=== PATIENT | male | born 1965 | race Caucasian/White ===

== ENCOUNTER → 2018-05-19 07:48 | Outpatient (CLI) | payer BC, SELFPAY ==
[2018-05-19 07:59] LABS: Basophils % 0.8 % (0.1-2.0); Eosinophils # 0.1 K/mm3 (0.0-0.4); Eosinophils % 2.9 % (0.1-12.0); Hematocrit 40.3 % (42.0-52.0); Hemoglobin 13.1 g/dL (14.1-18.0); Lymphocytes # 1.1 K/mm3 (0.7-4.5); Lymphocytes % 26.1 K/mm3 (10-50); Mean Corpuscular HGB Conc 32.6 g/dL (31.8-35.4); Mean Corpuscular Hemoglobin 28.4 pg (27.0-31.2); Mean Corpuscular Volume 87.3 fl (80-94); Mean Platelet Volume 8.7 fl (7.4-10.4); Monocytes # 0.3 K/mm3 (0.1-1.0); Monocytes % 7.7 % (1.7-9.3); Neutrophils # 2.7 K/mm3 (1.8-7.8); Neutrophils % 62.6 % (37.0-80.0); Platelet Count 173 K/mm3 (142-424); Red Blood Count 4.62 M/mm3 (4.60-6.20); Red Cell Distribution Width 13.1 % (11.5-17.5); White Blood Count 4.3 K/mm3 (4.8-10.8)
[2018-05-19 08:30] LABS: Alanine Aminotransferase 47 U/L (12-78); Albumin Level 4.1 gm/dL (3.4-5.0); Albumin/Globulin Ratio 1.4 (1.1-1.8); Alkaline Phosphatase 53 U/L (46-116); Anion Gap 12.4 mEq/L (5-15); Aspartate Amino Transferase 19 U/L (15-37); Bilirubin,Total 0.2 mg/dL (0.2-1.0); Blood Urea Nitrogen 22 mg/dL (7-18); Calcium 9.1 mg/dL (8.5-10.1); Carbon Dioxide 29 mmol/L (21.0-32.0); Chloride 108 mmol/L (98-107); Chol/HDL Ratio 3.7 (1-3.5); Cholesterol 144 mg/dL (140-200); Creatinine,Serum 1.12 mg/dL (0.70-1.30); Estimated Glomerular Filt Rate 69 ml/min (>60); GFR (African American) 83 ML/MIN (>60); Globulin 2.9 gm/dl (1.3-3.2); Glucose 121 mg/dL (74-106); HDL Cholesterol 39 mg/dL (27-67); LDL Cholesterol 85 mg/dL (0-130); Potassium 4.4 mmoL/L (3.5-5.1); Sodium 145 mmol/L (136-145); Triglycerides 100 mg/dL (30-200); VLDL Cholesterol 20 mg/dL (0-40)
== END ==
PROVIDERS: Visit Provider Internal Medicine Adolescent Medicine
DX: Z00.00 Encounter for general adult medical examination without abnormal findings (principal); E78.5 Hyperlipidemia, unspecified; I25.10 Atherosclerotic heart disease of native coronary artery without angina pectoris
CPT/HCPCS: 36415; 80053; 80061; 85025

== ENCOUNTER → 2018-05-28 08:35 | Outpatient (CLI) | payer BC, SELFPAY ==
--- NOTE | 2018-05-28 08:45 | US_ITS ---
US abdomen complete HISTORY: ITS.REASON: SPIENOMEGALY ORDERING PHYSICIAN: Cornel Cantu MD PATIENT AGE: 53 years COMPARISON: None FINDINGS: PANCREAS:Unremarkable. No obvious mass or abnormal fluid collection. No ductal dilatation LIVER:No focal liver lesions demonstrated. Homogeneous echogenicity. No intrahepatic biliary ductal dilatation evident RIGHT KIDNEY:Unremarkable. Normal size and echogenicity. No hydronephrosis LEFT KIDNEY:Unremarkable. No hydronephrosis. Normal size and echogenicity. GALLBLADDER:No gallstones, gallbladder wall thickening, pericholecystic fluid, or biliary dilatation. AORTA:No evidence of aneurysmal dilatation. SPLEEN:There is mild splenomegaly at 14 cm. No obvious splenic lesions demonstrated ASCITES:None demonstrated. A palpable area in the left upper quadrant is imaged in shows a 3 x 1 cm area of isoechogenicity and may represent a lipoma. This may be confirmed with CT if clinically warranted IMPRESSION: 1. Borderline splenomegaly 2. Probable lipoma left upper quadrant
== END ==
PROVIDERS: Family Provider Internal Medicine Adolescent Medicine; PCP Internal Medicine Adolescent Medicine; Visit Provider Internal Medicine Adolescent Medicine
DX: R16.1 Splenomegaly, not elsewhere classified (principal)
CPT/HCPCS: 76700

== ENCOUNTER → 2018-06-16 14:09 | Outpatient (CLI) | payer BC, SELFPAY ==
--- NOTE | 2018-06-16 14:16 | CT_ITS ---
CT abdomen w con CLINICAL INDICATION: Splenomegaly ITS.REASON: enlarged spleen ORDERING PHYSICIAN: Mary Grace Stauffer MD PATIENT AGE: 53 years COMPARISON: None TECHNIQUE: Axial images obtained with sagittal and coronal reformats. All CT scans at the facility use one or more dose reduction, viz: automated exposure control, ma/kV adjustment per patient size (including targeted exams where dose is matched to indication, i.e. head), or iterative reconstruction technique. PROCEDURE: Oral Contrast: Redicat IV Contrast: 75 mL's of Isovue-370. FINDINGS: The lung bases are clear. Coronary artery calcifications and/or stents are noted The liver, gallbladder, adrenal glands, pancreas, and kidneys have an unremarkable appearance. There is mild splenomegaly at 14 cm. No splenic masses or perisplenic fluid collections are evident. No intestinal obstruction or free air. No enlarged lymph nodes. No acute bony anomalies. IMPRESSION: Mild splenomegaly otherwise negative CT abdomen with contrast
== END ==
PROVIDERS: Family Provider Internal Medicine Adolescent Medicine; PCP Internal Medicine Adolescent Medicine; Visit Provider Internal Medicine Medical Oncology
DX: R16.1 Splenomegaly, not elsewhere classified (principal)
CPT/HCPCS: 74160; Q9967

== ENCOUNTER → 2018-06-17 10:34 | Outpatient (CLI) | payer BC, SELFPAY ==
[2018-06-17 11:36] LABS: Basophils % 0.7 % (0.1-2.0); Eosinophils # 0.1 K/mm3 (0.0-0.4); Eosinophils % 2.7 % (0.1-12.0); Hematocrit 41.1 % (42.0-52.0); Hemoglobin 13.5 g/dL (14.1-18.0); Lymphocytes # 1.3 K/mm3 (0.7-4.5); Lymphocytes % 27.5 K/mm3 (10-50); Mean Corpuscular HGB Conc 32.8 g/dL (31.8-35.4); Mean Corpuscular Hemoglobin 28.7 pg (27.0-31.2); Mean Corpuscular Volume 87.6 fl (80-94); Mean Platelet Volume 7.8 fl (7.4-10.4); Monocytes # 0.3 K/mm3 (0.1-1.0); Monocytes % 7.4 % (1.7-9.3); Neutrophils # 2.8 K/mm3 (1.8-7.8); Neutrophils % 61.7 % (37.0-80.0); Platelet Count 185 K/mm3 (142-424); Red Blood Count 4.69 M/mm3 (4.60-6.20); Red Cell Distribution Width 13.3 % (11.5-17.5); White Blood Count 4.6 K/mm3 (4.8-10.8)
[2018-06-17 12:19] LABS: Thyroid Stimulating Hormone 3.49 uIU/ml (0.358-3.740)
[2018-06-21 05:20] LABS: Vitamin B12 1122 pg/mL (232-1245)
== END ==
PROVIDERS: PCP Internal Medicine Adolescent Medicine; Visit Provider Internal Medicine Medical Oncology
DX: R16.1 Splenomegaly, not elsewhere classified (principal)
CPT/HCPCS: 36415; 82607; 84443; 85025

== ENCOUNTER → 2018-10-11 08:37 | Outpatient (CLI) | payer BC, SELFPAY ==
--- NOTE | 2018-10-11 08:44 | US_ITS ---
US abdomen limited History:Follow-up splenomegaly Ordering Physician:Mary Grace Stauffer MD Patient Age: 53 years Comparison:05/28/2018 Findings: The spleen is slightly smaller measuring up to 12 to 13 cm in maximum longitudinal dimension previously measuring 14 cm. No perisplenic fluid collection or splenic mass evident. The left kidney has an unremarkable appearance. IMPRESSION: Borderline splenomegaly very slightly smaller compared to the previous exam
== END ==
PROVIDERS: PCP Internal Medicine Adolescent Medicine; Visit Provider Internal Medicine Medical Oncology
DX: R16.1 Splenomegaly, not elsewhere classified (principal)
CPT/HCPCS: 76705

== ENCOUNTER → 2019-03-21 08:39 | Outpatient (CLI) | payer BC, SELFPAY ==
[2019-03-21 09:12] LABS: Basophils # 0.1 K/mm3 (0-0.2); Basophils % 1.1 % (0.1-2.0); Eosinophils # 0.2 K/mm3 (0.0-0.4); Eosinophils % 3.8 % (0.1-12.0); Hematocrit 39.5 % (42.0-52.0); Hemoglobin 12.9 g/dL (14.1-18.0); Lymphocytes # 1.3 K/mm3 (0.7-4.5); Lymphocytes % 30.4 % (10-50); Mean Corpuscular HGB Conc 32.7 g/dL (31.8-35.4); Mean Corpuscular Hemoglobin 27.4 pg (27.0-31.2); Mean Corpuscular Volume 83.8 fl (80-94); Mean Platelet Volume 7.5 fl (7.4-10.4); Monocytes # 0.3 K/mm3 (0.1-1.0); Monocytes % 7.9 % (1.7-9.3); Neutrophils # 2.4 K/mm3 (1.8-7.8); Neutrophils % 56.8 % (37.0-80.0); Platelet Count 205 K/mm3 (142-424); Red Blood Count 4.72 M/mm3 (4.60-6.20); White Blood Count 4.3 K/mm3 (4.8-10.8)
[2019-03-21 11:18] LABS: Alanine Aminotransferase 64 U/L (12-78); Albumin Level 3.8 gm/dL (3.4-5.0); Albumin/Globulin Ratio 1.4 (1.1-1.8); Alkaline Phosphatase 48 U/L (46-116); Anion Gap 12.5 mEq/L (5-15); Aspartate Amino Transferase 34 U/L (15-37); Bilirubin,Total 0.3 mg/dL (0.2-1.0); Blood Urea Nitrogen 21 mg/dL (7-18); Calcium 9.3 mg/dL (8.5-10.1); Carbon Dioxide 28 mmol/L (21.0-32.0); Chloride 107 mmol/L (98-107); Chol/HDL Ratio 5.1 (1-3.5); Cholesterol 193 mg/dL (140-200); Creatinine,Serum 1.12 mg/dL (0.70-1.30); Estimated Glomerular Filt Rate 69 ml/min (>60); GFR (African American) 83 ML/MIN (>60); Globulin 2.8 gm/dl (1.3-3.2); Glucose 141 mg/dL (74-106); HDL Cholesterol 38 mg/dL (27-67); LDL Cholesterol 127 mg/dL (0-130); Potassium 4.5 mmoL/L (3.5-5.1); Sodium 143 mmol/L (136-145); Total Protein,Serum 6.6 gm/dL (6.4-8.2); Triglycerides 139 mg/dL (30-200); VLDL Cholesterol 28 mg/dL (0-40)
== END ==
PROVIDERS: Visit Provider Internal Medicine Adolescent Medicine
DX: I25.10 Atherosclerotic heart disease of native coronary artery without angina pectoris (principal); E78.5 Hyperlipidemia, unspecified
CPT/HCPCS: 36415; 80053; 80061; 85025

== ENCOUNTER → 2019-06-20 10:18 | Outpatient (CLI) | payer BC, SELFPAY ==
--- NOTE | 2019-06-20 10:20 | CA_ITS ---
APPROVED REPORT EXAM: Comprehensive 2D, Doppler, and color-flow Echocardiogram Mammography Technician: Vilma Marcano RVT Ht: 5 ft 10 in Wt: 241lbs BSA: 2.26 BP: 137/81 mmHg Indications: Shortness of Breath, CAD, Hyperlipidemia, Hypertension/HDD,Stents 2D Dimensions IVSd 1.40 cm M: 0.6-1.2 LVEF (Visual) 55.90 % PWd 1.40 cm M: 0.6 - 1.2 LVDd 3.20 cm M: 4.2 - 5.9 LVDs 2.30 cm M: 2.5 - 4.0 LVOT 2.90 cm (M/F) 1.5-2.5 M-Mode Dimensions LA Diam 4.50 cm (1.9-4.0) LVDd 4.90 cm (3.5-5.7) Ao Diam 2.30 cm (2.0-3.7) LVDs 3.20 cm (3.5-5.7) AV Cusp 2.40 cm (1.5-2.6) IVSd 1.20 cm (0.6-1.1) PWd 0.90 cm (0.6-1.1) EF (Teich) 63.70% FS 34.70% EDV (Teich) 113.00 mL ESV (Teich) 41.00 mL LV Diastology E/A Ratio 1.0 MED E' 7.60 (< 7 cm/sec) E'/MED E' Ratio 12.30 (>14) LAT E' 12.20 (<10 cm/sec) E/LAT E' Ratio 7.70 (>14) Aortic Valve AoV Peak Narciso. 131.00 (50-130 cm/s) AO Peak GR. 7.00 mmHg Mitral Valve MV E Max Narciso. 93.80 (40-130 cm/s) MV A Velocity 95.80 (40-130 cm/s) E/A Ratio 1.00 Pulmonary Valve PA Accel Time 130.00 (>120 msec) Tricuspid Valve TR P. Velocity 303.00 cm/s Left Ventricle Left atrium is mildly enlarged, left ventricle is normal size, mild concentric left ventricular hypertrophy, visually estimated ejection fraction 55% with no regional wall motion abnormality, grade 1 diastolic dysfunction seen without tissue Doppler evidence of raise left atrial pressure. Right Ventricle Right atrium and right ventricular normal size and contractility. Aortic Valve Aortic valve is minimally thickened and fibrosed. There is no aortic stenosis aortic insufficiency. Mitral Valve Mitral valve is grossly normal, there is no mitral stenosis, there is mild mitral regurgitation. Tricuspid Valve Tricuspid valve is grossly normal, there is mild tricuspid regurgitation. Pulmonic Valve Pulmonic valve is poorly visualized. Great Vessels Aortic root is normal size. Pericardium No significant pericardial effusion noted. Conclusion 1. Mildly enlarged left atrium, normal left ventricular size, mild concentric left ventricular hypertrophy, visually estimated ejection fraction 55% with no regional wall motion abnormality. Grade 1 diastolic dysfunction seen without tissue Doppler evidence of raise left atrial pressure. 2. Mild mitral and tricuspid regurgitation. 3. No significant pericardial effusion noted. Electronically signed by : Nicola Lezama, 06/24/2019 16:55:42
--- NOTE | 2019-06-20 10:20 | NM_ITS ---
APPROVED REPORT Exam: Nuclear Stress Test Indication: CAD, High Cholesterol, Family history, SOB Patient Location: Outpatient Stress Tech: Luna Rodriguez [place] Tech:Leilani Rincon, ARRT, RT (R)(N) Ht: 5 ft 11 in Wt: 240 lbs BSA: 2.28 m2 HR: 86 bpm BP: 151/90 mmHg BMI: 33.4 History: CAD, High Cholesterol, Family history, SOB Procedure: Patient exercised on Jose protocol 10 minutes and sec, resting heart rate 86 bpm, resting blood pressure 151/90 mmHg, with exercise maximum heart rate achived was 153 bpm which is Greater than 85 % of the maximum predicted heart rate and blood pressure was 168/78 mmHg. Test was stopped due to max effort. Patient denied any complaint of chest pain. Patient has Good exercise capacity, achieved 12.8 METs of workload on treadmill, the blood pressure response to exercise was Abnormal. Electrocardiogram Resting electrocardiogram showed sinus rhythm nonspecific ST-T changes, with exercise there is less than 1.[address] segment depression noted from the baseline EKG, occasional premature ventricular complexes were also present. The EKG portion of the exercise Myoview is nondiagnostic. Cardiac Stress and Resting SPECT Images: Cardiac Stress and Resting SPECT images were obtained using technetium 99m Myoview 32.2 mCi stress and 10.31 mCi at rest. Gated SPECT with analysis of segmental wall motion and calculation of the ejection fraction also done. Cardiac stress and resting SPECT images show decreased tracer activity in the inferior apical wall which improves on the resting images suggestive of reversible ischemia, computer derived ejection fraction is over 65% with no regional wall motion abnormality, right ventricle is normal size and contractility. Conclusion: 1. The EKG portion of the exercise Myoview is nondiagnostic due to baseline abnormal EKG. Patient has good exercise capacity achieved 12.8 mets of workload on treadmill, the blood pressure response to exercise was abnormal, there was no exercise-induced chest discomfort. 2. Scintigraphic evidence of small area reversible ischemia involving the inferior apical wall, possibility of the artifact cannot be excluded. Computer derived ejection fraction is over 65% with no regional wall motion abnormality, right ventricle is normal size and contractility. 3. Likely abnormal exercise Myoview study Electronically signed by : Nicola Lezama, 06/23/2019 17:02:30
--- NOTE | 2019-06-20 11:03 | HMH.ITSHM ---
Current Home Medications as stated by this patient Rocael Haas or videotape sales representative. []RENEXA XERELTO ATORVASTATIN FENOFIBRATE ASA PROTONIX VITAMINS
--- NOTE | 2019-06-20 12:30 | CA_ITS ---
APPROVED REPORT Ht: 5 ft 11 in Wt: 240 lbs BSA: 2.28 m2 Stress Test Details Test: Exercise stress testing was performed using a Jose protocol. HR Resting HR: 86 bpm Max Heart Rate (APMHR): 167 bpm Max HR Achieved: 170 bpm Target HR (85% APMHR): 141 bpm % of APMHR: 101 Recovery HR: 101 bpm HR response to stress: Normal HR response to stress BP Resting BP: 151.0/90.0 mmHg Max BP: 168.0/78.0 mmHg Recovery BP: 158.0/92.0 mmHg BP response to stress: Normal blood pressure response to stress. ECG Resting ECG: SINUS RHYTHM Stress ECG: OCC PVC Arrhythmia: , APC's, VPC's Recovery ECG: SINUS RHYTHM, nonspecific ST-T changes Clinical Reason for Termination: Completed protocol Stress Symptoms: Leg Fatigue Exercise duration: 10 min Exercise capacity: 12.8 METs Angina Score: None Stress ECG Conclusion OCCASIONAL PVC; less THAN 1.5mm ST DEPRESSION. The EKG portion of the myocardial perfusion imaging is nondiagnostic due to baseline abnormal EKG. Electronically signed by : Nicola Lezama, 06/20/2019 21:22:05
== END ==
PROVIDERS: PCP Internal Medicine Adolescent Medicine; Visit Provider Internal Medicine Cardiovascular Disease
DX: I25.118 Atherosclerotic heart disease of native coronary artery with other forms of angina pectoris (principal); R06.09 Other forms of dyspnea; E66.9 Obesity, unspecified; E78.49 Other hyperlipidemia; I10 Essential (primary) hypertension; Z82.49 Family history of ischemic heart disease and other diseases of the circulatory system
CPT/HCPCS: 78452; 93017; 93306; A9502

== ENCOUNTER → 2019-07-12 11:28 | Outpatient (CLI) | payer BC, SELFPAY ==
[2019-07-12 12:10] LABS: Basophils # 0.1 K/mm3 (0-0.2); Basophils % 1.2 % (0.1-2.0); Eosinophils # 0.2 K/mm3 (0.0-0.4); Hematocrit 42.4 % (42.0-52.0); Hemoglobin 13.2 g/dL (14.1-18.0); Lymphocytes # 1.4 K/mm3 (0.7-4.5); Lymphocytes % 32.5 % (10-50); Mean Corpuscular HGB Conc 31.2 g/dL (31.8-35.4); Mean Corpuscular Hemoglobin 28.1 pg (27.0-31.2); Mean Corpuscular Volume 90.3 fl (80-94); Mean Platelet Volume 8.3 fl (7.4-10.4); Monocytes # 0.4 K/mm3 (0.1-1.0); Monocytes % 8.3 % (1.7-9.3); Neutrophils # 2.3 K/mm3 (1.8-7.8); Platelet Count 217 K/mm3 (142-424); White Blood Count 4.3 K/mm3 (4.8-10.8)
[2019-07-12 13:53] LABS: Alanine Aminotransferase 49 U/L (12-78); Albumin Level 4.2 gm/dL (3.4-5.0); Alkaline Phosphatase 47 U/L (46-116); Anion Gap 10.9 mEq/L (5-15); Aspartate Amino Transferase 22 U/L (15-37); Bilirubin,Direct 0.1 mg/dL (0.0-0.2); Bilirubin,Indirect 0.3 mg/dL (0.0-0.9); Bilirubin,Total 0.4 mg/dL (0.2-1.0); Blood Urea Nitrogen 22 mg/dL (7-18); Calcium 9.4 mg/dL (8.5-10.1); Carbon Dioxide 31 mmol/L (21.0-32.0); Chloride 104 mmol/L (98-107); Chol/HDL Ratio 4.9 (1-3.5); Cholesterol 214 mg/dL (140-200); Creatinine,Serum 1.12 mg/dL (0.70-1.30); Estimated Glomerular Filt Rate 69 ml/min (>60); GFR (African American) 83 ML/MIN (>60); Glucose 182 mg/dL (74-106); HDL Cholesterol 44 mg/dL (27-67); LDL Cholesterol 137 mg/dL (0-130); Magnesium 1.7 mg/dL (1.4-2.2); Potassium 4.9 mmoL/L (3.5-5.1); Sodium 141 mmol/L (136-145); Total Protein,Serum 7.1 gm/dL (6.4-8.2); Triglycerides 164 mg/dL (30-200); VLDL Cholesterol 33 mg/dL (0-40)
== END ==
PROVIDERS: Visit Provider Physician Assistant
DX: I11.9 Hypertensive heart disease without heart failure (principal); I25.118 Atherosclerotic heart disease of native coronary artery with other forms of angina pectoris; Z51.81 Encounter for therapeutic drug level monitoring; Z79.899 Other long term (current) drug therapy
CPT/HCPCS: 36415; 80048; 80061; 80076; 83735; 85025

== ENCOUNTER → 2020-01-24 10:28 | Outpatient (CLI) | payer BC, SELFPAY ==
[2020-01-24 11:39] LABS: Chloride 100 mmol/L (98-107)
[2020-01-24 11:40] LABS: Potassium 4.5 mmoL/L (3.5-5.1); Sodium 137 mmol/L (136-145)
[2020-01-24 11:42] LABS: Alanine Aminotransferase 43 U/L (12-78); Albumin Level 4.2 g/dl (3.5-5.0); Albumin/Globulin Ratio 1.7 (1.1-1.8); Alkaline Phosphatase 63 U/L (38-126); Anion Gap 13.5 mEq/L (5-15); Aspartate Amino Transferase 35 U/L (17-59); Bilirubin,Total 0.5 mg/dl (0.2-1.3); Blood Urea Nitrogen 25 mg/dl (9-20); Calcium 9.7 mg/dl (8.4-10.2); Carbon Dioxide 28 mmol/L (22.0-30.0); Cholesterol 165 mg/dl (140-200); Estimated Glomerular Filt Rate 101 ml/min (>60); GFR (African American) 122 ML/MIN (>60); Globulin 2.5 g/dL (1.3-3.2); Glucose 335 mg/dl (74-100); Total Protein,Serum 6.7 g/dl (6.3-8.2); Triglycerides 364 mg/dl (30-150); VLDL Cholesterol 73 mg/dL (0-40)
[2020-01-24 11:43] LABS: HDL Cholesterol 33 mg/dl (40-60)
[2020-01-24 11:54] LABS: Direct LDL Cholesterol 84.98 mg/dL (100-129)
[2020-01-24 12:33] LABS: Eosinophils # 0.1 K/mm3 (0.0-0.4); Eosinophils % 3.3 % (0.1-12.0); Hematocrit 40.1 % (42.0-52.0); Hemoglobin 13.4 g/dL (14.1-18.0); Lymphocytes # 1.1 K/mm3 (0.7-4.5); Lymphocytes % 30.4 % (10-50); Mean Corpuscular HGB Conc 33.3 g/dL (31.8-35.4); Mean Corpuscular Hemoglobin 28.5 pg (27.0-31.2); Mean Corpuscular Volume 85.5 fl (80-94); Mean Platelet Volume 8.9 fl (7.4-10.4); Monocytes # 0.3 K/mm3 (0.1-1.0); Monocytes % 8.2 % (1.7-9.3); Neutrophils % 57.1 % (37.0-80.0); Platelet Count 193 K/mm3 (142-424); Red Blood Count 4.69 M/mm3 (4.60-6.20); Red Cell Distribution Width 13.6 % (11.5-17.5); White Blood Count 3.6 K/mm3 (4.8-10.8)
[2020-01-24 16:21] LABS: Hemoglobin A1C 10.2 % (4.0-6.0)
== END ==
PROVIDERS: Urology; Visit Provider Internal Medicine Adolescent Medicine
DX: I51.89 Other ill-defined heart diseases (principal)
CPT/HCPCS: 36415; 80053; 80061; 82248; 83036; 85025

== ENCOUNTER → 2020-05-08 08:14 | Outpatient (CLI) | payer BC, SELFPAY ==
[2020-05-08 09:27] LABS: Basophils # 0.1 K/mm3 (0-0.2); Basophils % 0.9 % (0.1-2.0); Eosinophils # 0.2 K/mm3 (0.0-0.4); Eosinophils % 3.6 % (0.1-12.0); Hematocrit 44.2 % (42.0-52.0); Hemoglobin 15.1 g/dL (14.1-18.0); Lymphocytes # 1.3 K/mm3 (0.7-4.5); Lymphocytes % 20.9 % (10-50); Mean Corpuscular HGB Conc 34.2 g/dL (31.8-35.4); Mean Corpuscular Hemoglobin 29.3 pg (27.0-31.2); Mean Corpuscular Volume 85.7 fl (80-94); Mean Platelet Volume 8.1 fl (7.4-10.4); Monocytes # 0.4 K/mm3 (0.1-1.0); Monocytes % 5.6 % (1.7-9.3); Neutrophils # 4.3 K/mm3 (1.8-7.8); Platelet Count 169 K/mm3 (142-424); Red Blood Count 5.16 M/mm3 (4.60-6.20); White Blood Count 6.2 K/mm3 (4.8-10.8)
[2020-05-08 09:51] LABS: Chloride 101 mmol/L (98-107); Potassium 4.4 mmoL/L (3.5-5.1); Sodium 141 mmol/L (136-145)
[2020-05-08 09:54] LABS: Alanine Aminotransferase 38 U/L (12-78); Albumin Level 4.5 g/dl (3.5-5.0); Albumin/Globulin Ratio 1.9 (1.1-1.8); Alkaline Phosphatase 47 U/L (38-126); Anion Gap 15.4 mEq/L (5-15); Aspartate Amino Transferase 33 U/L (17-59); Bilirubin,Total 0.4 mg/dl (0.2-1.3); Blood Urea Nitrogen 20 mg/dl (9-20); Calcium 10.1 mg/dl (8.4-10.2); Carbon Dioxide 29 mmol/L (22.0-30.0); Cholesterol 149 mg/dl (140-200); Estimated Glomerular Filt Rate 101 ml/min (>60); GFR (African American) 122 ML/MIN (>60); Globulin 2.4 g/dL (1.3-3.2); Glucose 113 mg/dl (74-100); Total Protein,Serum 6.9 g/dl (6.3-8.2); Triglycerides 144 mg/dl (30-150); VLDL Cholesterol 29 mg/dL (0-40)
[2020-05-08 09:55] LABS: Chol/HDL Ratio 4.4 (1-3.5); HDL Cholesterol 34 mg/dl (40-60)
[2020-05-08 10:05] LABS: Direct LDL Cholesterol 94.11 mg/dL (100-129)
[2020-05-08 10:34] LABS: Hemoglobin A1C 6.3 % (4.0-6.0)
== END ==
PROVIDERS: Visit Provider Internal Medicine Adolescent Medicine
DX: I25.10 Atherosclerotic heart disease of native coronary artery without angina pectoris (principal); E78.5 Hyperlipidemia, unspecified; E11.9 Type 2 diabetes mellitus without complications; Z79.84 Long term (current) use of oral hypoglycemic drugs
CPT/HCPCS: 36415; 80053; 80061; 83036; 85025

== ENCOUNTER → 2020-08-16 07:48 | Outpatient (CLI) | payer BC, SELFPAY ==
[2020-08-16 08:44] LABS: Basophils # 0.1 K/mm3 (0-0.2); Basophils % 0.7 % (0.1-2.0); Eosinophils # 0.3 K/mm3 (0.0-0.4); Eosinophils % 3.8 % (0.1-12.0); Hematocrit 47.6 % (42.0-52.0); Hemoglobin 14.9 g/dL (14.1-18.0); Lymphocytes # 1.5 K/mm3 (0.7-4.5); Lymphocytes % 20.2 % (10-50); Mean Corpuscular HGB Conc 31.2 g/dL (31.8-35.4); Mean Corpuscular Hemoglobin 27.4 pg (27.0-31.2); Mean Corpuscular Volume 87.9 fl (80-94); Mean Platelet Volume 7.5 fl (7.4-10.4); Monocytes # 0.5 K/mm3 (0.1-1.0); Monocytes % 6.4 % (1.7-9.3); Neutrophils % 68.9 % (37.0-80.0); Platelet Count 197 K/mm3 (142-424); Red Blood Count 5.41 M/mm3 (4.60-6.20); Red Cell Distribution Width 14.4 % (11.5-17.5); White Blood Count 7.3 K/mm3 (4.8-10.8)
[2020-08-16 09:08] LABS: Chloride 101 mmol/L (98-107); Potassium 4.5 mmoL/L (3.5-5.1); Sodium 138 mmol/L (136-145)
[2020-08-16 09:11] LABS: Alanine Aminotransferase 36 U/L (12-78); Albumin Level 4.6 g/dl (3.5-5.0); Albumin/Globulin Ratio 1.8 (1.1-1.8); Alkaline Phosphatase 48 U/L (38-126); Anion Gap 14.5 mEq/L (5-15); Aspartate Amino Transferase 29 U/L (17-59); Bilirubin,Total 0.5 mg/dl (0.2-1.3); Blood Urea Nitrogen 23 mg/dl (9-20); Calcium 9.8 mg/dl (8.4-10.2); Carbon Dioxide 27 mmol/L (22.0-30.0); Chol/HDL Ratio 4.7 (1-3.5); Cholesterol 183 mg/dl (140-200); Estimated Glomerular Filt Rate 101 ml/min (>60); GFR (African American) 122 ML/MIN (>60); Globulin 2.6 g/dL (1.3-3.2); Glucose 109 mg/dl (74-100); HDL Cholesterol 39 mg/dl (40-60); Total Protein,Serum 7.2 g/dl (6.3-8.2); Triglycerides 186 mg/dl (30-150); VLDL Cholesterol 37 mg/dL (0-40)
[2020-08-16 09:22] LABS: Direct LDL Cholesterol 113.13 mg/dL (100-129)
[2020-08-16 09:30] LABS: Hemoglobin A1C 6.3 % (4.0-6.0)
== END ==
PROVIDERS: Visit Provider Internal Medicine Adolescent Medicine
DX: I25.10 Atherosclerotic heart disease of native coronary artery without angina pectoris (principal); E11.9 Type 2 diabetes mellitus without complications; Z79.84 Long term (current) use of oral hypoglycemic drugs
CPT/HCPCS: 36415; 80053; 80061; 83036; 85025

== ENCOUNTER → 2021-05-07 10:09 | Outpatient (CLI) | payer BC, SELFPAY ==
[2021-05-07 10:35] LABS: Basophils # 0.1 K/mm3 (0-0.2); Basophils % 1.1 % (0.1-2.0); Eosinophils # 0.2 K/mm3 (0.0-0.4); Eosinophils % 3.5 % (0.1-12.0); Hematocrit 44.7 % (42.0-52.0); Hemoglobin 14.8 g/dL (14.1-18.0); Lymphocytes # 1.3 K/mm3 (0.7-4.5); Lymphocytes % 19.5 % (10-50); Mean Corpuscular HGB Conc 33.1 g/dL (31.8-35.4); Mean Corpuscular Hemoglobin 28.3 pg (27.0-31.2); Mean Corpuscular Volume 85.4 fl (80-94); Mean Platelet Volume 7.9 fl (7.4-10.4); Monocytes # 0.5 K/mm3 (0.1-1.0); Monocytes % 6.8 % (1.7-9.3); Neutrophils # 4.6 K/mm3 (1.8-7.8); Neutrophils % 69.2 % (37.0-80.0); Platelet Count 172 K/mm3 (142-424); Red Blood Count 5.24 M/mm3 (4.60-6.20); Red Cell Distribution Width 14.5 % (11.5-17.5); White Blood Count 6.6 K/mm3 (4.8-10.8)
[2021-05-07 10:48] LABS: Hemoglobin A1C 6.4 % (4.0-6.0)
[2021-05-07 11:27] LABS: Alanine Aminotransferase 47 U/L (12-78); Albumin Level 4.4 g/dl (3.5-5.0); Albumin/Globulin Ratio 1.9 (1.1-1.8); Alkaline Phosphatase 54 U/L (38-126); Anion Gap 15.6 mEq/L (5-15); Aspartate Amino Transferase 40 U/L (17-59); Bilirubin,Total 0.6 mg/dl (0.2-1.3); Blood Urea Nitrogen 10 mg/dl (9-20); Calcium 9.2 mg/dl (8.4-10.2); Carbon Dioxide 29 mmol/L (22.0-30.0); Chloride 102 mmol/L (98-107); Chol/HDL Ratio 3.9 (1-3.5); Cholesterol 147 mg/dl (140-200); Estimated Glomerular Filt Rate 117 ml/min (>60); GFR (African American) 142 ML/MIN (>60); Globulin 2.3 g/dL (1.3-3.2); Glucose 113 mg/dl (74-100); HDL Cholesterol 38 mg/dl (40-60); Potassium 4.6 mmoL/L (3.5-5.1); Sodium 142 mmol/L (136-145); Total Protein,Serum 6.7 g/dl (6.3-8.2); Triglycerides 166 mg/dl (30-150); VLDL Cholesterol 33 mg/dL (0-40)
[2021-05-07 11:39] LABS: Direct LDL Cholesterol 84.79 mg/dL (100-129)
== END ==
PROVIDERS: Visit Provider Internal Medicine Adolescent Medicine
DX: I25.10 Atherosclerotic heart disease of native coronary artery without angina pectoris (principal); I51.89 Other ill-defined heart diseases
CPT/HCPCS: 36415; 80053; 80061; 83036; 85025

== ENCOUNTER → 2021-08-09 11:24 | Outpatient (CLI) | payer BC, SELFPAY ==
--- NOTE | 2021-08-09 11:24 | NM_ITS ---
APPROVED REPORT Exam: Nuclear Stress Test Indication: CAD, DM, High cholesterol, Family history Patient Location: Outpatient Stress Tech: Geraldine Echevarria [place] Tech:Leilani Rincon, ARRT, RT (R)(N) Ht: 5 ft 11 in Wt: 222 lbs HR: 73 bpm BP: 146/87 mmHg BSA: 2.20 m2 BMI: 30.9 History: CAD, DM, High cholesterol, Family history Procedure: Patient exercised on Jose protocol 9:00 minutes and sec, resting heart rate 73 bpm, resting blood pressure 146/87 mmHg, with exercise maximum heart rate achived was 154 bpm which is 105 % of the maximum predicted heart rate and blood pressure was 187/96 mmHg. Test was stopped due to patient request. Patient denied any complaint of chest pain. Patient has good exercise capacity, achieved 10.1 METs of workload on treadmill, the blood pressure response to exercise was Adequate. Electrocardiogram Resting electrocardiogram shows sinus rhythm nonspecific ST-T changes, with exercise there is less than 1.[address] segment depression noted from the baseline EKG, the EKG portion of the exercise Myoview was nondiagnostic due to baseline abnormal EKG. Cardiac Stress and Resting SPECT Images: Cardiac Stress and Resting SPECT images were obtained using technetium 99m Myoview 30.7 mCi stress and 10.88 mCi at rest. Gated SPECT for analysis of segmental wall motion and calculation of the ejection fraction also done. Prone images were also obtained. Cardiac stress and resting SPECT images show uniform myocardial activity without segmental perfusion abnormality, compared right ejection fraction is 43% with no regional wall motion abnormality, right ventricle is normal size and contractility. Conclusion: 1. The EKG portion of the exercise Myoview is nondiagnostic due to baseline abnormal EKG, patient has good exercise capacity achieved 10.1 METs of workload on treadmill, the blood pressure response to exercise was adequate, there was no exercise-induced induced chest discomfort. 2. No scintigraphic evidence of reversible ischemia seen, compared right ejection fraction is 43% with no regional wall motion abnormality, right ventricle is normal size and contractility. 3. Abnormal exercise Myoview study due to low ejection fraction noted by gated SPECT otherwise normal perfusion. Electronically signed by : Nicola Lezama MD 08/13/2021 06:59:33
--- NOTE | 2021-08-09 13:32 | CA_ITS ---
APPROVED REPORT EXAM: Comprehensive 2D, Doppler, and color-flow Echocardiogram Senior Software Test Engineer: Vilma Marcano RVT Ht: 5 ft 10 in Wt: 224lbs BSA: 2.19 BP: 131/80 mmHg Indications: CAD,HTN,HLD,SOA 2D Dimensions LVOT 2.40 cm (M/F) 1.5-2.5 LA Volume 36.10 mL LA Volume Index 16.48 mL/m2 (M/F) 16-34 M-Mode Dimensions RVDd 2.70 cm (0.9-2.6) LA Diam 4.12 cm (1.9-4.0) LVDd 4.75 cm (3.5-5.7) Ao Diam 3.62 cm (2.0-3.7) LVDs 3.34 cm (3.5-5.7) IVSd 0.80 cm (0.6-1.1) PWd 0.53 cm (0.6-1.1) EF (Teich) 56.70% FS 29.70% EDV (Teich) 104.90 mL TAPSE 2.30 (<1.7) ESV (Teich) 45.40 mL LV Diastology E Decel Time 143.00 (160-240 msec) E/A Ratio 1.1 MED E' 6.20 (< 7 cm/sec) E'/MED E' Ratio 12.81 (>14) LAT E' 7.30 (<10 cm/sec) E/LAT E' Ratio 10.88 (>14) Mitral Valve MV E Max Narciso. 79.00 (40-130 cm/s) MV A Velocity 71.00 (40-130 cm/s) E/A Ratio 1.12 MV Decel. Time 143.00 (160-240 ms) MV PHT 42.00 ms Pulmonary Valve PV Peak Velocity 73.00 (50-150 cm/s) Left Ventricle Left atrium is mildly enlarged, left ventricle is normal size, mild concentric left ventricular hypertrophy, visually estimated ejection fraction 55% with no regional wall motion abnormality, grade 1 diastolic dysfunction seen without tissue Doppler evidence of raise left atrial pressure. Right Ventricle Right atrium and right ventricle are normal size and contractility. Aortic Valve Aortic valve is minimally thickened and fibrosed, there is no aortic stenosis or aortic insufficiency. Mitral Valve Mitral valve grossly normal, there is trace mitral regurgitation. Tricuspid Valve Tricuspid valve grossly normal, there is trace tricuspid regurgitation, tricuspid regurgitation jet velocity is inadequate for calculation of the right ventricular systolic pressure. Pulmonic Valve Pulmonic valve is poorly visualized. Great Vessels Aortic root is normal size. Inferior vena cava is normal size with normal inspiratory collapse. Pericardium No significant pericardial effusion noted. Conclusion 1. Mildly enlarged left atrium, normal left ventricular size, mild concentric left ventricular hypertrophy, visually estimated ejection fraction 55% with no regional wall motion abnormality, grade 1 diastolic dysfunction seen without tissue Doppler evidence of raise left atrial pressure. 2. Trace mitral and tricuspid regurgitation. 3. No significant pericardial effusion noted. 4. Inferior vena cava is normal size with normal inspiratory collapse. Electronically signed by : Nicola Lezama MD 08/13/2021 05:58:54
--- NOTE | 2021-08-09 14:07 | HMH.ITSHM ---
Current Home Medications as stated by this patient Rocael Haas or account retention representative. []RIVAROXABAN [PANTOPRAZOLE MULTIVITAMIN METFORMIN EMPAGLIFLOZIN COQ10 ATORVASTATIN ASA
--- NOTE | 2021-08-09 14:24 | CA_ITS ---
APPROVED REPORT Exam: Exercise Treadmill Technologist: Geraldine Echevarria, Ht: 5 ft 10 in Wt: 224 lbs BSA: 2.19 m2 HR: 73 bpm BP: 146/87 mmHg Medical History Medications: Aspirin,,,,, Metformin,,,,, Pantoprazole,,,,, Atorvastatin,,,,, XaRELTO,,,,, Co Q10,,,,, Multivitamin,,,,, EMpagliflozin,,,,, Stress Test Details Test: Jose HR Resting HR: 92 bpm Max Heart Rate (APMHR): 165.415533 bpm Max HR Achieved: 154 bpm Target HR (85% APMHR): 140.631202 bpm % of APMHR: 93.33 Recovery HR: 90 bpm BP Resting BP: 161/96 mmHg Max BP: 190/100 mmHg Recovery BP: 156.0/93.0 mmHg ECG Resting ECG: NSR, Inf. Lat STT Segment Abnormalities Clinical Exercise duration: 09:01 min Highest Stage Achieved: Exercise capacity: 10.1 METs Stress ECG Conclusion Exercised 9:00 minutes Max HR: 154 % of PM: 105 Max BP: 187/96 MET's: 10.1 Stopped due to: Pt. request Symptoms: None Arrhythmias/Ectopy: Occ. PVC's ST-T Changes: <1.5mm ST Segment changes Conclusion: Abnormal, Non-Diagnostic stress due to baseline EKG changes. Test Summary REST . . . . . . . Sitting REST . . . . . . . Standing REST 09:53 0.0 1.2 92 . 161/ 96 . . Stage 1 01:00 10.0 1.7 102 . . . . Stage 1 02:00 10.0 1.7 109 . . . . Stage 1 03:00 10.0 1.7 107 . 158/ 90 . . Stage 2 01:00 12.0 2.5 116 . . . . Stage 2 02:00 12.0 2.5 124 . . . . Stage 2 03:00 12.0 2.5 127 . 190/100 . . Stage 3 01:00 14.0 3.4 140 . . . . Stage 3 02:00 14.0 3.4 149 . . . . Stage 3 03:00 14.0 3.4 154 . . . . Stage 4 00:01 16.0 4.2 154 . . . Stop exercise at 09:01 RECOVERY 01:00 0.0 0.0 138 . . . . RECOVERY 02:00 0.0 0.0 112 . . . . RECOVERY 03:00 0.0 0.0 101 . 187/ 96 . . RECOVERY 04:00 0.0 0.0 97 . 187/ 96 . . RECOVERY 05:00 0.0 0.0 95 . 187/ 96 . . RECOVERY 06:00 0.0 0.0 90 . 156/ 93 . . RECOVERY 07:00 0.0 0.0 0 . 156/ 93 . . RECOVERY 07:35 0.0 0.0 0 . 156/ 93 . . Electronically signed by : Nicola Lezama MD 08/13/2021 06:46:51
== END ==
PROVIDERS: PCP Internal Medicine Adolescent Medicine; Visit Provider Nurse Practitioner Family
DX: I25.10 Atherosclerotic heart disease of native coronary artery without angina pectoris (principal); I10 Essential (primary) hypertension; I73.9 Peripheral vascular disease, unspecified; E78.49 Other hyperlipidemia; M47.814 Spondylosis without myelopathy or radiculopathy, thoracic region; E66.9 Obesity, unspecified; Z68.32 Body mass index [BMI] 32.0-32.9, adult; Z02.89 Encounter for other administrative examinations
CPT/HCPCS: 78452; 93017; 93306; A9502

== ENCOUNTER → 2023-07-21 07:23 | Outpatient (CLI) | payer BC, SELFPAY ==
--- OUTSIDE RECORDS SUMMARY | 2023-07-21 07:25 | XMS_ITS | Patient Health Record ---
Author Name Unknown Organization [facility] Address [address] [facility] [address] [place] [address] Care Team Providers Care Greens Cutter Name Role Phone Cornel Cantu Primary Care Provider [phone] ALLERGIES No Known Allergies RESULTS Component Value Reference Range Notes Estimated Glomerular Filtrat ion Rate Reviewed date:09/16/2022 03:11:59 PM Interpretation: Performing Lab: Notes/Report: CLIA: [id number] Kamlesh Frances MD, [facility] [address] , [address], [place] [address] Test performed by [facility] Estimated GFR (Black) 108 >59 mL/min/1.73m2 Estimated GFR (Other) 93 >59 mL/min/1.73m2 GFR Categories in Chronic Kidney Disease (CKD) GFR Category GFR (mL/min/1.73 sq. meters) Interpretation G1 90 or greater Normal or high* G2 60-89 Mild decrease* G3a 45-59 Mild to moderate decrease G3b 30-44 Moderate to severe decrease G4 15-29 Severe decrease G5 14 or less Kidney failure *In the absence of kidney damage, neither GFR category G1 or G2 fulfill the criteria for CKD (Kidney Int Suppl 2013; 3.1-150) The CKD-EPI calculation is intended for use in patients 18 years of age and older. Decreased calculation accuracy may be seen in patients taking medications that affect renal excretion, or in those patients with extremes in muscle mass or diet. Lipid Panel Reviewed date:09/16/2022 03:11:59 PM Interpretation: Performing Lab: Notes/Report: Test performed by [facility] [address] , [address], [place] [address] Kamlesh Frances MD, Lead [facility] CLIA: [id number] Cholesterol 160
--- NOTE | 2023-07-21 07:26 | NM_ITS ---
APPROVED REPORT Exam: Nuclear Stress Test Indication: CAD, 3 STENTS, DM, HYPERLIPIDEMIA, , FM HX, ANGINA Patient Location: Outpatient Stress Tech: Bronwyn Dunaway [place] Tech:Elisa Arriola HILARIARober RT (R)(N)(M) Ht: 5 ft 11 in Wt: 225 lbs HR: 76 bpm BP: 148/87 mmHg BSA: 2.22 m2 Rhythm: NSR TID: 1.05 BMI: 31.3 History: CAD, 3 STENTS, DM, HYPERLIPIDEMIA, , FM HX, ANGINA Procedure: Patient exercised on Jose protocol 9:22 minutes and sec, resting heart rate 76 bpm, resting blood pressure 148/87 mmHg, with exercise maximum heart rate achived was 158 bpm which is 97 % of the maximum predicted heart rate and blood pressure was 200/88 mmHg. Test was stopped due to FATIGUE. Patient has Average exercise capacity, achieved 10.1 METs of workload on treadmill, the blood pressure response to exercise was Exaggerated. PT C/O CHEST PRESSURE Cardiac Stress and Resting SPECT Images: Cardiac Stress and Resting SPECT images were obtained using technetium 99m Myoview 31.4 mCi stress and 10.79 mCi at rest. Raw images demonstrate significant diaphragmatic overlap with the inferior border of the LV wall. Resting and stress imaging in supine and prone positions demonstrate a medium, moderate, partially reversible perfusion defect in the basal to mid inferior and lateral LV gann. Gated imaging demonstrates mild reduction in global and regional LV systolic function. LVEF is calculated at 46%. Conclusion: Diaphragmatic attenuation is present Medium, moderate, partially reversible perfusion defect in the basal to mid inferior and lateral LV gann. Findings are suggestive of possible partially reversible ischemia. Gated imaging demonstrates mild reduction in global and regional LV systolic function. LVEF is calculated at 46%. Of note, the patient had a hypertensive exaggerated BP response at peak stress during his treadmill stress test. Electronically signed by : Carolyn Salas MD 07/25/2023 22:56:48
--- NOTE | 2023-07-21 07:44 | CA_ITS ---
APPROVED REPORT EXAM: Comprehensive 2D, Doppler, and color-flow Echocardiogram Supervisor [place]: WILEY Ponce, RVS Ht: 5 ft 10 in Wt: 229lbs BSA: 2.21 BP: 115/94 mmHg Indications: Angina, HLD, HTN, ROTH 2D Dimensions Aortic Root 3.69 cm LA Volume 60.90 mL Left Atrium 3.65 cm LA Volume Index 27.620251 mL/m2 (M/F) 16-34 LVOT 2.12 cm (M/F) 1.5-2.5 M-Mode Dimensions RVDd 2.25 cm (0.9-2.6) LA Diam 4.64 cm (1.9-4.0) LVDd 4.76 cm (3.5-5.7) Ao Diam 3.58 cm (2.0-3.7) LVDs 3.27 cm (3.5-5.7) IVSd 0.85 cm (0.6-1.1) PWd 0.93 cm (0.6-1.1) EF (Teich) 59.00% EPSs 0.43 cm FS 31.30% EDV (Teich) 105.40 mL TAPSE 2.43 (<1.7) ESV (Teich) 43.20 mL LV Diastology E Decel Time 300.00 (160-240 msec) E/A Ratio 0.78 MED E' 6.50 (< 7 cm/sec) MED A' 10.50 cm/s E'/MED E' Ratio 9.69 (>14) LAT E' 7.40 (<10 cm/sec) LAT A' 13.20 cm/s E/LAT E' Ratio 8.51 (>14) Aortic Valve LVOT Max 87.00 (70-110 cm/s) LVOT VTI 18.29 cm AoV Peak Narciso. 111.00 (50-130 cm/s) AO Peak GR. 4.90 mmHg AO Mean GR. 2.50 (<5 mmHg) AO VTI 17.99 (18-25 cm) TEENA (VTI) 3.59 (2.5-4.5 cm2) Mitral Valve MV A Velocity 80.00 (40-130 cm/s) E/A Ratio 0.78 MV Decel. Time 300.00 (160-240 ms) Pulmonary Valve PV Peak Velocity 89.00 (50-150 cm/s) Left Ventricle The left ventricle is normal size. The left ventricular systolic function is normal. The left ventricular ejection fraction is within the normal range. There is normal left ventricular wall thickness. There is normal LV segmental wall motion. The left ventricular diastolic function is normal. LVEF is 55%. Right Ventricle The right ventricle is normal size. The right ventricular systolic function is normal. Atria The left atrium size is normal. The right atrium size is normal. There is no Doppler evidence of interatrial shunt. Aortic Valve The aortic valve opens well. There is no aortic valvular stenosis. No aortic regurgitation is present. Mitral Valve The mitral valve is normal in structure. There is no mitral valve regurgitation noted. Tricuspid Valve The tricuspid valve leaflets are thin and pliable. Trace tricuspid regurgitation. There is insufficient TR jet to estimate RVSP. Pulmonic Valve The pulmonary valve is normal in structure. Trace pulmonic regurgitation. Great Vessels The aortic root is normal in size. The ascending aorta is not well visualized. IVC is normal in size and collapses >50% with inspiration. Pericardium There is no pericardial effusion. Other Information Study Quality: Adequate Conclusion Normal biventricular systolic function. No significant valvular stenosis or regurgitation. Electronically signed by : Carolyn Salas MD 07/24/2023 12:37:19
--- NOTE | 2023-07-21 10:26 | CA_ITS ---
APPROVED REPORT Exam: Exercise Treadmill Technologist: Bronwyn Dunaway Ht: 5 ft 10 in Wt: 229 lbs BSA: 2.21 m2 HR: 76 bpm BP: 148/87 mmHg Rhythm: NSR Indications: Angina Medical History Medications: Aspirin,,,,, Metformin,,,,, Pantoprazole,,,,, Atorvastatin,,,,, Probiotic,,,,, GlUCOsamine,,,,, Co Q10,,,,, RIvaROXABAN,,,,, EMpagliflozin,,,,, CHOndroitin,,,,, Stress Test Details Test: Jose HR Resting HR: 85 bpm Max Heart Rate (APMHR): 163 bpm Max HR Achieved: 158 bpm Target HR (85% APMHR): 139 bpm % of APMHR: 97 Recovery HR: 106 bpm HR response to stress: Normal HR response to stress BP Resting BP: 148.0/87.0 mmHg Max BP: 200.0/88.0 mmHg Recovery BP: 141.0/97.0 mmHg BP response to stress: Abnormal hypertensive response to stress. ECG Resting ECG: Sinus rhythm, nonspecific ST changes in inferolateral leads Stress EC.[address] depression Arrhythmia: None Recovery ECG: Return to baseline within 3 minutes of recovery Recovery Arrhythmia: PACs, PVCs Clinical Exercise duration: 09:22 min Highest Stage Achieved: Exercise capacity: 10.1 METs Overall Exercise Capacity for Age: Average Stress ECG Conclusion The patient was able to exercise for a total of 9 minutes, 22 seconds. He achieved a total of 10.1 METS. He has average exercise capacity compared to age and sex matched peers. He has normal HR, but exaggerated BP, response to exercise. Symptoms: Chest pressure, Dyspnea, Leg fatigue Arrhythmias/Ectopy: PVC's, PAC's noted during recovery ST-T Changes: 0.[address] depression Conclusion: Average exercise capacity. Exaggerated BP response to exercise. No definite evidence of ischemia on ECG stress test. Myoview images are reported separately. Test Summary REST . . . . . . . Sitting REST 06:26 0.0 0.0 85 . 148/ 87 . . Stage 1 01:00 10.0 1.7 103 . . . . Stage 1 02:00 10.0 1.7 105 . . . . Stage 1 03:00 10.0 1.7 107 . 128/ 82 . . Stage 2 01:00 12.0 2.5 115 . . . . Stage 2 02:00 12.0 2.5 126 . . . . Stage 2 03:00 12.0 2.5 132 . 144/ 82 . . Stage 3 01:00 14.0 3.4 146 . . . . Stage 3 02:00 14.0 3.4 150 . 160/ 88 . . Stage 3 . . . . . . . Myoview Injected Stage 3 03:00 14.0 3.4 147 . 160/ 88 . . Stage 4 00:22 16.0 4.2 156 . . . Stop exercise at 09:22 RECOVERY 01:00 0.0 0.0 140 . 200/ 88 . . RECOVERY 02:00 0.0 0.0 116 . 200/ 88 . . RECOVERY 03:00 0.0 0.0 111 . 200/ 88 . . RECOVERY 04:00 0.0 0.0 108 . 185/104 . . RECOVERY 05:00 0.0 0.0 113 . 185/104 . . RECOVERY 06:00 0.0 0.0 105 . 185/104 . . RECOVERY 07:00 0.0 0.0 103 . 177/100 . . RECOVERY 08:00 0.0 0.0 101 . 177/100 . . RECOVERY 09:00 0.0 0.0 102 . 141/ 97 . . RECOVERY 10:00 0.0 0.0 102 . 141/ 97 . . RECOVERY 11:00 0.0 0.0 103 . 150/ 90 . . RECOVERY 11:15 0.0 0.0 96 . 150/ 90 . . Electronically signed by : Carolyn Salas MD 07/25/2023 22:53:07
== END ==
PROVIDERS: PCP Internal Medicine Adolescent Medicine; Visit Provider Nurse Practitioner
DX: Z02.4 Encounter for examination for driving license (principal); E78.5 Hyperlipidemia, unspecified; I10 Essential (primary) hypertension; I73.9 Peripheral vascular disease, unspecified; I20.89 Other forms of angina pectoris
CPT/HCPCS: 78452; 93017; 93306; A9502

== ENCOUNTER 2023-08-14 08:13 | Day surgery (SDC) | payer BC, SELFPAY ==
[2023-08-14] VITALS (10 sets, daily range): BP systolic 109–164; BP diastolic 63–97; PULSE 68–86; RESP 18–20; O2SAT 90–98; BMI 32.5
--- NOTE | 2023-08-14 | IR_ITS ---
APPROVED REPORT Patient Location: Outpatient PROCEDURES Left heart catheterization Left ventriculogram Selective coronary angiogram INDICATION Known coronary artery disease, Angina pectoris, Abnormal Myoview Informed consent was obtained prior to the procedure. COMPLICATIONS None Estimated Blood Loss: Less than 10 mls TECHNIQUE One percent lidocaine used to anesthetize the right anterior aspect of the wrist. The right radial artery was accessed via the Seldinger technique. A 6 [place] sheath was placed in the right radial artery. 2.5 mg of Verapamil, 800 mcg of nitroglycerin, 1mg Lidocaine and 5000 U Heparin were given through the arterial sheath. The papa catheter was also used to perform left heart catheterization, left ventriculogram and selective coronary angiogram. At the end of the procedure the sheath was removed good hemostasis was achieved using Traclet band, patient was transferred to the postop holding area in stable condition. ANGIOGRAPHIC RESULTS The left main artery Normal The left anterior descending artery Has a proximal concentric 30 to 40% stenosis. The remaining vessel has 10% luminal irregularity The circumflex artery Nondominant yet still large with proximal concentric 20% stenosis and diffuse 10 to 20% stenoses in the first and second obtuse marginal artery with a proximal concentric 30 to 40% stenosis and a small to medium sized proximal third obtuse marginal artery The right coronary artery Is a dominant vessel and has stents in the proximal mid and distal segment in a contiguous manner. The stent is widely patent with mild 10 to 20% in-stent restenosis. Distally the vessel has 20 and 30% stenoses in the posterior descending artery The [place]STA ventriculogram reveals Normal 65% The left ventricular end-diastolic pressure 20 mmHg IMPRESSION Coronary disease as described above Normal ejection fraction Elevated LVEDP PLAN 1. Medical management 2. Consider sleep study Electronically signed by : Jerod Paulino MD 08/14/2023 11:03:26
[2023-08-14 08:42] LABS: Basophils # 0.1 K/mm3 (0-0.2); Basophils % 1.1 % (0.1-2.0); Eosinophils # 0.2 K/mm3 (0.0-0.4); Hematocrit 46.1 % (42.0-52.0); Hemoglobin 15.7 g/dL (14.1-18.0); Lymphocytes # 1.5 K/mm3 (0.7-4.5); Lymphocytes % 30.8 % (10-50); Mean Corpuscular HGB Conc 34.1 g/dL (31.8-35.4); Mean Corpuscular Hemoglobin 29.5 pg (27.0-31.2); Mean Corpuscular Volume 86.7 fl (80-94); Mean Platelet Volume 8.1 fl (7.4-10.4); Monocytes # 0.4 K/mm3 (0.1-1.0); Monocytes % 7.5 % (1.7-9.3); Neutrophils # 2.7 K/mm3 (1.8-7.8); Neutrophils % 55.6 % (37.0-80.0); Platelet Count 160 K/mm3 (142-424); Red Blood Count 5.31 M/mm3 (4.60-6.20); Red Cell Distribution Width 14.2 % (11.5-17.5); White Blood Count 4.9 K/mm3 (4.8-10.8)
[2023-08-14 08:51] LABS: Anion Gap 15.3 mEq/L (5-15); Blood Urea Nitrogen 20 mg/dl (9-20); Calcium 9.3 mg/dl (8.4-10.2); Carbon Dioxide 29 mmol/L (22.0-30.0); Chloride 103 mmol/L (98-107); Creatinine Clearance Estimated 170 mL/min (50-200); Estimated Glomerular Filt Rate 116 ml/min (>60); GFR (African American) 141 ML/MIN (>60); Glucose 156 mg/dl (74-100); Potassium 4.3 mmoL/L (3.5-5.1); Sodium 143 mmol/L (136-145)
== END 2023-08-14 14:10 | disposition home or self-care (01) ==
PROVIDERS: PCP Internal Medicine Adolescent Medicine; Visit Provider Internal Medicine
DX: I25.118 Atherosclerotic heart disease of native coronary artery with other forms of angina pectoris (principal); Z79.899 Other long term (current) drug therapy; E11.9 Type 2 diabetes mellitus without complications; Z79.01 Long term (current) use of anticoagulants; E78.5 Hyperlipidemia, unspecified; I70.213 Atherosclerosis of native arteries of extremities with intermittent claudication, bilateral legs
CPT/HCPCS: 80048; 85025; 93458; 99152; C1725; C1760; C1769; J1644; Q9967